=== PATIENT | female | born 1950 | race Caucasian/White ===

== ENCOUNTER → 2016-04-14 | Outpatient (CLI) | payer BC | LOC: MOB LAB 13:47 | DX: N30.01 Acute cystitis with hematuria (principal); R30.0 Dysuria | CPT/HCPCS: 87077; 87088; 87186 ==

== ENCOUNTER → 2016-04-20 | Outpatient (CLI) | payer BC | LOC: MOB LAB 15:35 | PROVIDERS: ATTEND Physician Assistant Medical | DX: N30.01 Acute cystitis with hematuria (principal) | CPT/HCPCS: 87088 ==